=== PATIENT | female | born 1995 ===

== ENCOUNTER 2016-02-09 02:50 | Emergency (ER) | payer OTHER ==
[2016-02-09 03:12] VITALS: TEMP 36.6; Ht 161.3 cm
[2016-02-09 04:32] LABS: BLOOD UREA NITROGEN 8 mg/dl (7-18); BUN/CREATININE RATIO 9.5 (10-20); CALCIUM 8.4 mg/dl (8.5-10.1); CARBON DIOXIDE 23 mmol/L (21-32); CHLORIDE 113 mmol/L (98-107); CREATININE 0.85 mg/dl (0.60-1.20); GLUCOSE 103 mg/dl (70-99); POTASSIUM 3.8 mmol/L (3.5-5.1); SODIUM 144 mmol/L (136-145)
[2016-02-09 04:34] LABS: PREG INTERNAL NEGATIVE QC NEG CLEAR BACKGROUND; PREG INTERNAL POSITIVE QC POS CONTROL LINE
[2016-02-09 06:44] VITALS: BP 133/82; O2SAT 96
[2016-02-09 07:25] VITALS: PULSE 88
--- NOTE | 2016-02-10 02:02 | EMERGENCY ROOM VISIT NOTE ---
ED Visit Note First contact with patient: 02:55 CHIEF COMPLAINT: Altered mental status from Alcohol overdose HISTORY OF PRESENT ILLNESS: This 20 year old female patient presents to the emergency department via ambulance for evaluation of altered mental status, presumably from alcohol intoxication. The patient lives in the [place] area and is visiting [place] for the ' holiday. Evidently she has been drinking this evening with her fianc. The patient somehow became from her fianc, and was found stumbling downtown by police. She did not know her location or where she was staying. EMS was contacted, and others patient is here in the department for evaluation. REVIEW OF SYSTEMS: Review of systems was somewhat limited secondary to patient' s presumed alcohol intoxication status. Review of systems was performed to the best of our ability and reperformed as the patient began to sober up. All other systems were reviewed and are negative. ALLERGIES: See EMR MEDICATIONS: See EMR PMH: No chronic medical disease SOCIAL HISTORY: Lives with significant other PHYSICAL EXAM VITALS: Vitals are noted on the nurse's note and reviewed by myself. Vital signs stable. GENERAL: White female, who is in no acute distress and resting comfortably. Patient is visibly altered and smells of alcohol. HEAD: Normocephalic atraumatic. EARS: External ear normal. External auditory canals clear, tympanic membranes pearly fernandes without erythema or effusion bilaterally. EYES: Pupils equal round and reactive to light and accommodation. Conjunctivae without injection, sclerae without icterus. Extraocular movements intact. NOSE: Patent, turbinates without inflammation or discharge. MOUTH: Mucous membranes moist. Tonsils are not enlarged. Pharynx without erythema, blood, vomitus, or exudate. Uvula midline. Airway patent. NECK: Supple without nuchal rigidity. No lymphadenopathy. Cervical spine is nontender. HEART: Regular rate and rhythm without murmurs gallops or rubs. LUNGS: Clear to auscultation bilaterally without wheezes, rales or rhonchi. No retractions or accessory muscle use. ABDOMEN: Positive normal bowel sounds x 4. Soft, nontender, without masses or organomegaly. No guarding or rebound tenderness. MUSCULOSKELETAL: No muscle atrophy, erythema, or edema noted. Gross motor function intact to all extremities. NEURO: Patient was alert to person but not place or time. They appear with altered mental status. SKIN: The skin was without rashes, erythema, edema, or bruising. No Tenting of the skin. EMERGENCY DEPARTMENT COURSE: Physical exam and history was performed. Nursing notes and EMR were reviewed. The patient appears to be altered on my examination. I suspect this is from an alcohol overdose. Conservative care measures and aspiration precautions were instituted. The patient was placed on compliance monitor and watched during the patient's stay. The patient was placed in a prone position. Blood work was obtained and was reviewed. The patient's blood alcohol level was 223. This appears to be the primary cause of the altered status. Patient was reevaluated multiple times throughout the course of their emergency department stay. Over time the patient did sober up and was able to talk, walk , and drink fluids without difficulty. The patient was felt stable for discharge home. The patient was given alcohol intoxication handouts. The patient was discharged home in stable condition with a sober ride. Differential diagnosis: Etiologies such as alcohol intoxication, metabolic, infection, hypoglycemia, electrolyte abnormalities, cardiac sources, intracerebral event, toxicologic, neurologic, as well as others were entertained. DIAGNOSIS: Acute alcohol intoxication Current/Historical Medications No Active Prescriptions or Reported Meds Allergies Coded Allergies: No Known Allergies (Unverified , 02/09/16) Vital Signs Date Time Temp Pulse Resp B/P Pulse Ox O2 Delivery O2 Flow Rate FiO2 02/09/16 07:25 88 02/09/16 07:20 85 02/09/16 07:15 99 02/09/16 07:10 89 02/09/16 07:05 100 02/09/16 07:00 101 02/09/16 06:55 91 02/09/16 06:50 85 02/09/16 06:45 92 02/09/16 06:44 88 18 133/82 96 Room Air 02/09/16 06:43 133/82 02/09/16 06:40 87 02/09/16 06:30 81 02/09/16 06:25 105 02/09/16 06:20 90 02/09/16 06:15 91 02/09/16 06:10 96 14 02/09/16 06:05 107 14 02/09/16 06:00 88 17 133/80 02/09/16 05:55 108 10 02/09/16 05:35 86 02/09/16 05:30 115 02/09/16 05:25 103 14 02/09/16 05:20 94 12 02/09/16 05:15 102 13 02/09/16 05:10 102 15 02/09/16 05:06 135/75 02/09/16 05:05 112 20 02/09/16 05:01 100 18 111/81 97 Room Air 02/09/16 04:50 105 16 02/09/16 04:45 106 15 02/09/16 04:40 113 16 02/09/16 04:35 106 19 02/09/16 04:32 135/73 02/09/16 04:30 112 19 02/09/16 04:25 113 21 02/09/16 04:20 124 24 02/09/16 04:15 98 18 144/88 02/09/16 04:10 111 23 02/09/16 04:05 91 20 02/09/16 04:00 102 18 02/09/16 03:55 113 24 02/09/16 03:50 96 16 02/09/16 03:45 111 28 94 02/09/16 03:40 98 100 02/09/16 03:35 94 21 99 02/09/16 03:30 103 17 99 02/09/16 03:27 141/119 02/09/16 03:25 101 24 97 02/09/16 03:22 113 02/09/16 03:20 96 18 99 02/09/16 03:15 Room Air 02/09/16 03:15 99 18 99 02/09/16 03:15 Room Air 02/09/16 03:12 36.6 100 18 141/88 98 Room Air 02/09/16 03:10 105 16 100 02/09/16 03:05 122 19 99 Laboratory Results 02/09/16 04:00 Test 02/09/16 04:00 Anion Gap 8.0 mmol/L (3-11) Estimated GFR () 113.5 Estimated GFR (Non- 97.9 BUN/Creatinine Ratio 9.5 (10-20) Calcium Level 8.4 mg/dl (8.5-10.1) Human Chorionic Gonadotropin, Qual NEG (NEG) Ethyl Alcohol mg/dL 223.0 mg/dl (0-3) Departure Information Impression Primary Impression: Alcohol intoxication Dispostion Home / Self-Care Condition GOOD Prescriptions No Active Prescriptions or Reported Meds Referrals No Doctor, Assigned (PCP) Forms HOME CARE DOCUMENTATION FORM, IMPORTANT VISIT INFORMATION Patient Instructions A Signature Page, Alcohol Intoxication - [facility], My [facility] Additional Instructions You were seen and evaluated today on an emergency basis only. This is not a substitute for, or an effort to provide, complete comprehensive medical care. It is not possible to recognize and treat all injuries or illnesses in a single emergency department visit. Keep well-hydrated. Small sips of water over a long period of time are better tolerated than large amounts at once. Tylenol 1000 mg every 6 hours as needed for pain (Maximum 3000 mg Tylenol in 24 hr period). Follow up with family doctor as needed. You are welcome to return to the emergency department anytime with new, worsening, or concerning symptoms.
== END 2016-02-09 07:31 | disposition home or self-care (01) ==
LOC: C.EDB 02:51
DX: F10.129 Alcohol abuse with intoxication, unspecified (principal)